=== PATIENT | male | born 1955 | race Caucasian/White ===

== ENCOUNTER → 2022-11-06 | Outpatient (CLI) | payer MEDICARE ==
--- NOTE | 2022-11-06 07:47 | US ---
EXAMINATION TYPE: US Aorta Screening DATE OF EXAM: 11/06/2022 COMPARISON: NONE CLINICAL INDICATION: Male, 67 years old with history of Z13.6 ENCOUNTER FOR SCREENING FOR CARDIOVASCU LAR D; Aorta screening TECHNIQUE: Multiple sonographic images of the abdominal aorta are obtained. FINDINGS: EXAM MEASUREMENTS: Abdominal Aorta: Proximal: 2.0 x 1.8 cm Mid: 2.1 x 1.8 cm Distal: 1.6 x 2.1 cm Bifurcation: RT 1.3 x 1.3 cm LT 1.5 x 1.0 cm LINE DIRECTOR NOTES: No evidence of AAA IMPRESSION: 1. Screening abdominal aortic ultrasound negative for aneurysm.
== END | disposition home or self-care (01) ==
LOC: RADUSWWP 07:20
PROVIDERS: ATTEND Family Medicine
DX: Z13.6 Encounter for screening for cardiovascular disorders (principal)
CPT/HCPCS: 76706